=== PATIENT | female | born 1930 | race Caucasian/White ===

== ENCOUNTER 2017-11-11 01:14 | Inpatient (IN) | payer OTHER ==
[~2017-11-11] VITALS: Ht 154.9 cm; Wt 63.1 kg
[~2017-11-11 01:14] MED LIST: ARICEPT; ARICEPT23 MG PO; ASPIR 8181 M1 PO; BUSPAR; BUSPAR15 MG PO; BUSPAR7.5 MG PO; CEPHALEXIN500 MG PO; DONEPEZIL HCL23 MG PO; FOLIC ACID; GLIPIZIDE; GLIPIZIDE XL5 MG PO; GLIPIZIDE5 MG PO; GLUCOTROL5 MG PO; IMODIUM PO; LOPERAMIDE2 MG PO; LOW DOSE ASPIRI81 M1 PO; NAMENDA10 MG PO; NAMENDA5 MG PO; OCUVITE EXTRA1 EACH PO; SERAQUEL; SEROQUEL12.5 MG PO; SERTRALINE HCL100 MG PO; ST. JOSEPH ASPI81 MG PO; VITAMIN D; VITAMIN D10000 UNIT PO; VITAMIN D2000 INTUN PO; VITAMIN D32000 UNI1 PO; ZOLOFT; ZOLOFT25 MG PO; ZOLOFT50 MG PO; [UNRECOGNIZED DRUG - OTHER]
[2017-11-11 02:58] LABS: HEMATOCRIT 36.8 % (36.0-46.0); HEMOGLOBIN 12.1 G/DL (11.9-15.5); MCH 30.4 PG (29.0-34.0); MCHC 32.9 G/DL (30.0-36.0); MCV 92.5 FL (83-99); RBC DIS.WIDTH-CV 14.6 % (11.8-14.6); RBC DIS.WIDTH-SD 47.6 % (39-53); RED BLOOD COUNT 3.98 M/uL (3.80-5.20); WHITE BLOOD COUNT 10.5 K/uL (4.1-10.2)
[2017-11-11 03:04] LABS: PTT 26.8 SEC (25-37)
[2017-11-11 03:09] LABS: CHLORIDE 105 mEq/L (99-109); POTASSIUM 4.7 mEq/L (3.7-5.4); SODIUM 142 mEq/L (136-147)
[2017-11-11 03:10] LABS: GLUCOSE 204 mg/dL (70-99)
[2017-11-11 03:14] LABS: CREATININE 1.1 mg/dL (0.6-1.3); GFR ESTIMATE (CALCULATED) 50 mL/min/
[2017-11-11 03:15] LABS: UREA NITROGEN (BUN) 31 mg/dL (9-23)
[2017-11-11 04:26] LABS: PLAT.SUFFICIENCY ADEQUATE; PLATELET COUNT 155 K/uL (156-360)
[2017-11-11 07:50] LABS: HEMATOCRIT 34.6 % (36.0-46.0); HEMOGLOBIN 11.5 G/DL (11.9-15.5); MCH 30.6 PG (29.0-34.0); MCHC 33.2 G/DL (30.0-36.0); PLATELET COUNT 139 K/uL (156-360); RBC DIS.WIDTH-CV 14.6 % (11.8-14.6); RBC DIS.WIDTH-SD 47.1 % (39-53); RED BLOOD COUNT 3.76 M/uL (3.80-5.20); WHITE BLOOD COUNT 7.8 K/uL (4.1-10.2)
[2017-11-11 07:56] LABS: APPEARANCE CLEAR ((CLEAR)); BILIRUBIN NEGATIVE; BLOOD NEGATIVE; COLOR YELLOW ((YELLOW)); GLUCOSE (STRIP) NEGATIVE; KETONES NEGATIVE; LEUKOCYTES NEGATIVE; NITRITE NEGATIVE; PROTEIN (STRIP) 30; SPECIFIC GRAVITY 1.018 (1.000-1.030); UCUL ADDED? NO; UROBILINOGEN 0.2 MG/DL (0.2-1.0)
[2017-11-11 08:18] VITALS: BP 162/69
[2017-11-11 11:03] VITALS: BP 164/86
[2017-11-11 20:03] VITALS: BP 119/88
[2017-11-11 23:56] VITALS: BP 127/56
[2017-11-12 05:30] VITALS: BP 132/86
[2017-11-12 10:46] LABS: CHLORIDE 108 MEQ/L (99-109); POTASSIUM 4.9 MEQ/L (3.7-5.4); SODIUM 141 MEQ/L (136-147)
[2017-11-12 10:51] LABS: GFR ESTIMATE (CALCULATED) 56 mL/min/; GLUCOSE 157 mg/dL (70-99); UREA NITROGEN (BUN) 21 mg/dL (9-23)
[2017-11-12 11:26] VITALS: BP 131/62
[2017-11-12 12:19] LABS: BASOPHIL (%) 0.1 % (0-1); EOSINOPHIL (%) 0.1 % (0-5); HEMATOCRIT 28.8 % (36.0-46.0); IMMATURE GRANULOCYTE (%) 0.3 % (0.0-0.7); LYMPHOCYTE (%) 12.2 % (15-42); LYMPHOCYTE COUNT 1.1 K/uL (1.0-2.8); MCHC 31.3 G/DL (30.0-36.0); MCV 92.9 FL (83-99); MONOCYTE (%) 8.7 % (3-12); MONOCYTE COUNT 0.8 K/uL (0-0.8); NEUTROPHIL (%) 78.6 % (45-76); NEUTROPHIL COUNT 6.7 K/uL (1.8-6.4); PLATELET COUNT 123 K/uL (156-360); RBC DIS.WIDTH-CV 14.5 % (11.8-14.6); RBC DIS.WIDTH-SD 48.1 % (39-53); WHITE BLOOD COUNT 8.6 K/uL (4.1-10.2)
[2017-11-12 16:01] VITALS: BP 149/66
[2017-11-12 19:14] VITALS: BP 132/60
[2017-11-12 23:29] VITALS: BP 112/55
[2017-11-13 04:40] VITALS: BP 150/66
[2017-11-13 06:13] LABS: BASOPHIL (%) 0.6 % (0-1); BASOPHIL COUNT 0.1 K/uL (0-0.1); EOSINOPHIL (%) 2.5 % (0-5); EOSINOPHIL COUNT 0.2 K/uL (0-0.3); HEMOGLOBIN 9.7 G/DL (11.9-15.5); IMMATURE GRANULOCYTE (%) 0.4 % (0.0-0.7); LYMPHOCYTE (%) 17.7 % (15-42); LYMPHOCYTE COUNT 1.4 K/uL (1.0-2.8); MCH 30.4 PG (29.0-34.0); MCHC 32.3 G/DL (30.0-36.0); MONOCYTE (%) 8.2 % (3-12); MONOCYTE COUNT 0.7 K/uL (0-0.8); NEUTROPHIL (%) 70.6 % (45-76); NEUTROPHIL COUNT 5.6 K/uL (1.8-6.4); PLATELET COUNT 123 K/uL (156-360); RBC DIS.WIDTH-CV 14.6 % (11.8-14.6); RBC DIS.WIDTH-SD 48.3 % (39-53); RED BLOOD COUNT 3.19 M/uL (3.80-5.20); WHITE BLOOD COUNT 7.9 K/uL (4.1-10.2)
[2017-11-13 06:40] LABS: CHLORIDE 106 MEQ/L (99-109); GFR ESTIMATE (CALCULATED) 56 mL/min/; GLUCOSE 150 mg/dL (70-99); POTASSIUM 4.5 MEQ/L (3.7-5.4); SODIUM 142 MEQ/L (136-147); UREA NITROGEN (BUN) 22 mg/dL (9-23)
[2017-11-13 08:34] VITALS: BP 130/60
[2017-11-13 11:31] VITALS: BP 133/61
[2017-11-13 15:55] VITALS: BP 124/58
[2017-11-13 19:29] VITALS: BP 145/60
[2017-11-13 23:31] VITALS: BP 138/63
[2017-11-14 03:29] VITALS: BP 141/64
[2017-11-14 06:52] LABS: BASOPHIL (%) 0.9 % (0-1); BASOPHIL COUNT 0.1 K/uL (0-0.1); EOSINOPHIL (%) 4.1 % (0-5); EOSINOPHIL COUNT 0.3 K/uL (0-0.3); HEMATOCRIT 30.8 % (36.0-46.0); HEMOGLOBIN 9.9 G/DL (11.9-15.5); IMMATURE GRANULOCYTE (%) 0.6 % (0.0-0.7); LYMPHOCYTE (%) 17.3 % (15-42); LYMPHOCYTE COUNT 1.2 K/uL (1.0-2.8); MCH 29.9 PG (29.0-34.0); MCHC 32.1 G/DL (30.0-36.0); MCV 93.1 FL (83-99); MONOCYTE (%) 6.3 % (3-12); MONOCYTE COUNT 0.4 K/uL (0-0.8); NEUTROPHIL (%) 70.8 % (45-76); NEUTROPHIL COUNT 4.9 K/uL (1.8-6.4); PLATELET COUNT 151 K/uL (156-360); RBC DIS.WIDTH-CV 14.4 % (11.8-14.6); RBC DIS.WIDTH-SD 47.4 % (39-53); RED BLOOD COUNT 3.31 M/uL (3.80-5.20); WHITE BLOOD COUNT 6.9 K/uL (4.1-10.2)
[2017-11-14 07:16] LABS: CHLORIDE 105 MEQ/L (99-109); CREATININE 0.8 MG/DL (0.6-1.3); GFR ESTIMATE (CALCULATED) > 59 mL/min/; GLUCOSE 139 mg/dL (70-99); POTASSIUM 4.1 MEQ/L (3.7-5.4); SODIUM 142 MEQ/L (136-147); UREA NITROGEN (BUN) 16 mg/dL (9-23)
[2017-11-14 08:07] VITALS: BP 126/60
[2017-11-14] MEDS ORDERED: Tylenol Extra Streng PO (09:52)
[2017-11-14] MEDS ORDERED: ASPIRIN325 MG PO (09:52)
[2017-11-14] MEDS ORDERED: HYDROCODON-ACE1 EAC7 PO (09:52)
[2017-11-14 12:01] VITALS: BP 126/60
== END 2017-11-14 13:33 | DRG 481 ==
LOC: EME → EDBD 01:14 → TRA 01:14 → EDOF 06:07 → 3EAST 06:07 → ENRESERV 06:08 → 3EAST 07:54
PROVIDERS: Emergency Medicine; Hospitalist; Internal Medicine
PROC: 0QSC04Z Reposition Left Lower Femur with Internal Fixation Device, Open Approach (ICD-10-PCS; principal; 2017-11-11)
PROC: 3E0T3BZ Introduction of Anesthetic Agent into Peripheral Nerves and Plexi, Percutaneous Approach (ICD-10-PCS; 2017-11-11)
DX: S72.452A Displaced supracondylar fracture without intracondylar extension of lower end of left femur, initial encounter for closed fracture (principal); W18.30XA Fall on same level, unspecified, initial encounter; Y92.129 Unspecified place in nursing home as the place of occurrence of the external cause; D62 Acute posthemorrhagic anemia; G30.9 Alzheimer's disease, unspecified; F02.80 Dementia in other diseases classified elsewhere, unspecified severity, without behavioral disturbance, psychotic disturbance, mood disturbance, and anxiety; J45.909 Unspecified asthma, uncomplicated; F32.9 Major depressive disorder, single episode, unspecified; E11.9 Type 2 diabetes mellitus without complications; R01.1 Cardiac murmur, unspecified; F41.9 Anxiety disorder, unspecified; I10 Essential (primary) hypertension; M81.0 Age-related osteoporosis without current pathological fracture; Z96.642 Presence of left artificial hip joint; Z66 Do not resuscitate; Z79.82 Long term (current) use of aspirin; Z88.1 Allergy status to other antibiotic agents; Z99.3 Dependence on wheelchair; Z86.73 Personal history of transient ischemic attack (TIA), and cerebral infarction without residual deficits
CPT/HCPCS: 70450; 71045; 71046; 72131; 72192; 73501; 73552; 73560; 73590; 76000; 80048; 81003; 82948; 85025; 85027; 85610; 85730; 86850; 86900; 86901; 93005; 93880; 94799; 97530 GO; 97530 GP; 99281; 99284; C1713; J0690; J1100; J1644; J1815; J2270; J2370; J2795; J7030; S0020